=== PATIENT | male | born 1965 | race Caucasian/White ===

== ENCOUNTER 2018-07-15 07:11 | Inpatient (IN) | payer BC ==
--- NOTE | 2018-07-02 16:14 | HP ---
HISTORY AND PHYSICAL: DATE OF ADMISSION/SURGERY: 07/15/18 DATE OF OFFICE VISIT: 07/02/18 SURGEON: Gela Britt MD* (dictated by DAKSHA Martinez). PROCEDURE: Left total hip arthroplasty. CHIEF COMPLAINT: Left hip pain. HISTORY OF PRESENT ILLNESS: Mr. Valente is a 52-year-old gentleman with continued complaints of left hip pain. He has failed conservative treatment and elected to proceed with a left total hip arthroplasty. The surgery is scheduled for 07/15/18. PAST MEDICAL HISTORY: Congenital heart murmur. PAST SURGICAL HISTORY: Bilateral knee arthroscopies and hernia repair. CURRENT MEDICATIONS: 1. Glucosamine/chondroitin. 2. Naproxen. 3. Multivitamin. 4. Vitamin C. 5. Chelle. ALLERGIES: No known drug allergies. FAMILY HISTORY: Coronary artery disease, cancer, and COPD. SOCIAL HISTORY: He is a 52-year-old gentleman who lives with his spouse. He does not smoke or use drugs. Uses occasional alcohol. REVIEW OF SYSTEMS: A complete 14-point review of systems was reviewed with the patient. It was all negative or noncontributory. PHYSICAL EXAMINATION GENERAL: He is well developed, well nourished, in no acute distress. VITAL SIGNS: He stands 5 feet 6 inches tall, weighs 195 pounds. His blood pressure 120/82. His heart rate is 80. HEENT: Normocephalic, atraumatic. NECK: Supple. No palpable lymph nodes. PULMONARY: The lungs are clear to auscultation bilaterally. CARDIAC: Regular rate and rhythm. Strong S1, S2. ABDOMEN: Soft, nontender, nondistended. NEUROLOGIC: He is alert and oriented x3. MUSCULOSKELETAL: Left lower extremity: The skin is intact. There are no open wounds or abrasions. He walks with an antalgic-type gait favoring his left hip. He has decreased internal and external rotation of the left hip, 80 degrees of hip flexion, which reproduces groin pain. He has 2+ dorsalis pedis pulses. Intact sensation. His lower extremity muscle group strengths are intact at 5/5. ASSESSMENT AND PLAN: Mr. Valente is a 52-year-old gentleman with end-stage osteoarthritis of the left hip. He has failed conservative treatment and elected to proceed with left total hip arthroplasty. The surgery is scheduled for 07/15/[address] Britt discussed the risks and benefits of the surgery at today's visit and all of his questions were answered. He will follow up with Dr. Britt 2 weeks after the surgery. DAKSHA MARTINEZ [id number]/[facility] #: [id number] [place]
[~2018-07-15 07:11] MED LIST: Acetaminophen IV 1GM/100ML * 1,000 MG/100 ML VIAL IVPB ONE; Buffered Lidocaine 1% SYRIN* 1 ML/SYRINGE INTRADERM ONE; Dexamethasone IV* 4 MG/ML 1 ML (4 MG) IV SLOW PU ONE; Famotidine IV* 10 MG/ML 2 ML (20 mg) IV ONE; Gabapentin CAP(*) 300 MG PO ONE; Lactated Ringers 1000 ML Bag* 1,000 ML IV SCH; celeCOXIB CAP* 200 MG PO ONE
[2018-07-15] MEDS ORDERED: celeCOXIB CAP* 100 MG ONE (07:41)
[2018-07-15] MEDS ORDERED: ceFAZolin 2 GM in NS PREMIX(*) 2 GM/100 ML BAG IVPB ONE (07:41)
[2018-07-15] MEDS ORDERED: Dexamethasone IV* 4 MG/ML 1 ML (4 MG) ONE (07:41)
[2018-07-15] MEDS ORDERED: Famotidine IV* 10 MG/ML 2 ML (20 mg) ONE (07:41)
[2018-07-15] MEDS ORDERED: Gabapentin CAP(*) 300 MG ONE (07:41)
[2018-07-15] MEDS ORDERED: Acetaminophen IV 1GM/100ML * 100 ML ONE (07:56)
[2018-07-15] MEDS ORDERED: ROPIVACAINE 5 MG/ML 30 ML BTL (0.5%) ONE (08:49)
[2018-07-15] MEDS ORDERED: KETAMINE HCL* 50 MG/ML 10 ML VIAL ONE (08:58)
[2018-07-15] MEDS ORDERED: fentaNYL* 50 MCG/ML 2 ML VIAL (100 MCG VIAL) ONE ×2 (08:58→16:12)
[2018-07-15] MEDS ORDERED: Midazolam* 1 MG/ML 5 ML VIAL (5 MG) ONE ×2 (08:59→10:10)
[2018-07-15] MEDS ORDERED: Propofol* 10 MG/ML 20 ML BTL ONE (08:59)
[2018-07-15] MEDS ORDERED: Ondansetron INJ* 2 MG/ML VIAL ONE (08:59)
[2018-07-15] MEDS ORDERED: Bupivacaine 0.5% SDV PF* 30ML VIAL ONE (08:59)
[2018-07-15] MEDS ORDERED: Ropivacaine (OR use only) 2 MG/ML 10 ML ONE (09:12)
[2018-07-15] MEDS ORDERED: DiMENhydriNATE IV* 50 MG/ML VIAL IV PUSH PRN (11:01)
[2018-07-15] MEDS ORDERED: HYDROmorphone INJ1* 1 MG/ML SYRINGE IV PRN (11:01)
[2018-07-15] MEDS ORDERED: fentaNYL* 50 MCG/ML 2 ML VIAL (100 MCG VIAL) IV PRN (11:01)
[2018-07-15] MEDS ORDERED: Ondansetron INJ* 2 MG/ML VIAL IV PRN ×2 (11:01→12:27)
[2018-07-15] MEDS ORDERED: Scopolamine 1.5 mg* PATCH TRANSDERM PRN (11:01)
[2018-07-15] MEDS ORDERED: Naloxone* 0.4 MG/ML 1 ML VIAL IV PRN (11:01)
[2018-07-15] MEDS ORDERED: Magnesium Hydroxide LIQ* 30 ML UDC PO PRN (12:27)
[2018-07-15] MEDS ORDERED: Polyethylene Glycol 3350* 17 GM PACKET PO PRN (12:27)
[2018-07-15] MEDS ORDERED: Cyclobenzaprine TAB* 10 MG PO PRN (12:27)
[2018-07-15] MEDS ORDERED: Morphine 4 MG/ML VIAL (1 ml) 4 MG/ML VIAL IV PRN (12:27)
[2018-07-15] MEDS ORDERED: Bisacodyl SUPP* 10 MG SUPP PR PRN (12:27)
[2018-07-15] MEDS ORDERED: diPHENhydraMINE IV* 50 MG/ML 1 ml VIAL (BENADRYL) IV PRN (12:27)
[2018-07-15] MEDS ORDERED: diPHENhydraMINE PO* 25 MG PO PRN (12:27)
[2018-07-15] MEDS ORDERED: oxyCODONE TAB* 5 MG TAB PO PRN (12:27)
[2018-07-15] MEDS ORDERED: oxyCODONE/Acetamin 5/325 MG* TAB PO PRN (12:33)
[2018-07-15] MEDS ORDERED: Lactated Ringers 1000 ML Bag* 1,000 ML IV SCH (13:00)
[2018-07-15] MEDS ORDERED: DiMENhydriNATE IV* 50 MG/ML VIAL ONE (13:31)
[2018-07-15] MEDS ORDERED: Scopolamine 1.5 mg* PATCH ONE (13:41)
--- NOTE | 2018-07-15 16:31 | PN ---
Progress Note - Progress Note Date of Service: 07/15/18 Note: Patient seen in PACU POD 0 s/p LTH arthroplasty. He is feeling better, had nausea earlier. Pain is tolerable. Block still has not completely worn off as he still cannot actively dorsiflex left ankle. He now has sensation. Dressing dry left hip.
[2018-07-15] MEDS: Acetaminophen TAB* 325 MG PO SCH ×2 (18:12→21:03)
[2018-07-15] MEDS: ceFAZolin 1 GM ADVAN(*) 1 GM in NS 0.9% 50 ML* 50 ML IVPB SCH (19:18)
[2018-07-15] MEDS: traMADol TAB* 50 MG PO PRN (19:22)
--- NOTE | 2018-07-15 19:40 | OP ---
Operative Report - Blank - Operative Report Date of Operation: 07/15/18 Note: MJ CARDONA 1965 Date Of Surgery: 07/15/18 Gela Britt MD Fur Finisher: Itzel CROOKS did help throughout the procedure with preparation of the hip, wound retraction, manipulation of the hip, and wound closure. Anesthesiologist: Livan lOguin MD Anesthesia Type: spinal Preoperative Diagnosis: Left severe degenerative osteoarthritis of the hip Postoperative Diagnosis: As above Procedure Performed: Left Total Hip Arthroplasty Complications: None Specimen: Femoral head and acetabular reamings sent to pathology. Hardware used: This is uncemented [place] total hip arthroplasty hardware for the femur a size 5 accolade II femoral component, for the acetabulum a size 50 D trident II tritanium cluster hole shell with one 15mm screw, for the insert a size 32D trident x3 zero degree polyethylene insert, and for the femoral head a size 32-4 ceramic biolox V40 femoral head. Brief history/Indication: MJ CARDONA was known in clinic and had a history of severe left hip pain. He failed conservative treatment with anti- inflammatories, pain pills, intra-articular injections and physical therapy. He elected to undergo left total hip arthroplasty due to continued pain and decreased quality of life. Radiographs showed severe end stage osteoarthritis of the hip with bone on bone contact. Informed consent was obtained from the patient. He understood the risks of surgery included but were not limited to: bleeding, infection, damage to nearby structures, intraoperative fracture, nerve palsy, failure of the hardware, early loosening, stiffness or loss of motion, dislocation, leg length discrepancy, anesthesia complications, stroke, heart attack, blood clot and . He wished to proceed. Intra-Operative findings: Intraoperatively the patient was noted to have severe loss of cartilage of the acetabulum and femoral head. Description of the Procedure: MJ CARDONA was identified in the preanesthesia unit. His left hip was marked as the correct operative side. Informed consent was signed and placed in the chart. The patient was taken to the operating room and placed under anesthesia without complication. A kelly catheter was placed. The patient was placed on the peg board with all bony prominences well padded. The left lower extremity was prepped and draped in the usual sterile fashion. Preoperative time-out was made to correctly identify the patient, side and site. Appropriate intraoperative antibiotics were given within one hour of incision. A standard posterior incision was made and carried sharply down to the lateral fascia. A new 10 blade was used to make an incision in the fascia in line with the skin incision. A charnley retractor was placed. The piriformis and conjoined tendons were identified and elevated off the posterolateral femur using electrocautery. These were tagged with number 5 Ethibond. Next electrocautery was used to make a posterolateral capsular flap and this was tagged with number 5 Ethibonds. The hip was carefully dislocated. Lesser trochanter to the center of the femoral head was measured at 55 mm. The oscillating saw was used to make the femoral neck cut. The femoral head was carefully removed. The femur was retracted anteriorly and the acetabular retractors were placed. Long-handled knife was used to sharply remove any remaining labrum from the acetabular rim. The acetabulum was sequentially reamed up to a size 49. A bleeding subchondral bone bed was obtained. A trial liner was placed and had excellent fit and stability. A 50 D trident II tritanium cup was placed and had excellent stability with appropriate anteversion and abduction angle. A single 15mm screw was placed in the superior posterior quadrant for extra stability. A size 32D zero degree trident x3 liner was impacted into the acetabular shell. The liner was checked for stability and was stable. Next attention was turned to preparation of the femoral canal. A canal finder was used to enter the proximal femur. The femoral canal was sequentially broached up to a size 5 femoral broach trial. A trial neck and 32-4 trial femoral head was chosen. Lesser trochanter to center of the femoral head measurement was satisfactory. The hip was reduced and taken through a range of motion. The hip was stable in all positions with good soft tissue tension and appropriate leg lengths. The hip was dislocated and all trials were removed. The final implant chosen was a size 5 accolade II with 127 degree neck. This stem was impacted into the femoral canal without difficulty. The stem was stable with appropriate anteversion. The femoral head chosen was a 32-4 ceramic biolox V40. The head was impacted onto the femoral neck without difficulty. The final lesser trochanter to center of the femoral head measurement was satisfactory. The hip was reduced and taken through a range of motion. The hip was stable in all positions with good soft tissue tension and appropriate leg lengths. The hip was copiously irrigated with sterile saline. The previously tagged capsule and tendons were repaired to the posterolateral femur through two trochanteric drill holes. The lateral fascia layer was closed using number 1 vicryls. The rest of the incision was closed in a layered fashion using 0 and 2-0 vicryls. The skin was closed using 3-0 monocryl suture and Dermabond. Sterile adaptic, 4x4s and paper tape was used to cover the incision. The patients anesthesia was reversed without difficulty. He was taken to the PACU in stable condition. Intended weight-bearing will be as tolerated with posterior hip precautions.
[2018-07-15] MEDS: Docusate CAP* 100 MG PO SCH (21:01)
[2018-07-15] MEDS: oxyCODONE/Acetamin 5/325 MG* TAB PO PRN (21:01)
[2018-07-15] MEDS: Magnesium Hydroxide LIQ* 30 ML UDC PO SCH (21:01)
[2018-07-16] MEDS: ceFAZolin 1 GM ADVAN(*) 1 GM in NS 0.9% 50 ML* 50 ML IVPB SCH ×2 (02:57→10:52)
[2018-07-16] MEDS: traMADol TAB* 50 MG PO PRN (02:58)
[2018-07-16 04:52] LABS: ABS Basophils 0 10^3/ul (0-0.2); ABS Eosinophils 0 10^3/ul (0-0.6); ABS Lymphocytes 0.8 10^3/ul (1.0-4.8); ABS Monocytes 0.7 10^3/ul (0-0.8); ABS Neutrophils 10.5 10^3/ul (1.5-7.7); ABS Nucleated RBC 0 10^3/ul; Eosinophil % 0 %; Hematocrit 37 % (36-46); Hemoglobin 12.8 g/dL (14.0-18.0); Lymphocyte % 6.8 %; Mean Corpuscular HGB Conc 35 g/dL (31-36); Mean Corpuscular Hemoglobin 31 pg (27-31); Mean Corpuscular Volume 89 fL (80-94); Mean Platelet Volume 7.2 fL (7.4-10.4); Nucleated Red Blood Cells % 0; Platelet Count 186 10^3/uL (150-450); Red Blood Count 4.15 10^6 /uL (4.18-5.48); Red Cell Distribution Width 13 % (10.5-15); White Blood Count 12.1 10^3/uL (3.5-10.8)
[2018-07-16 05:21] LABS: Albumin 3.6 g/dL (3.2-5.2); Albumin/Globulin Ratio 1.6 (1-3); BUN/Creatinine Ratio 18.1 (8-20); Calcium 8.8 mg/dL (8.6-10.3); EGFR African American 139.8 (>60); EGFR Non-African American 115.6 (>60); Globulin 2.2 g/dL (2-4); Total Bilirubin 0.6 mg/dL (0.2-1.0); Total Protein 5.8 g/dL (6.4-8.9)
[2018-07-16 05:49] LABS: TSH (Thyroid Stimulating Horm) 0.57 mcIU/mL (0.34-5.60)
[2018-07-16] MEDS: oxyCODONE/Acetamin 5/325 MG* TAB PO PRN ×4 (06:30→21:47)
[2018-07-16] MEDS: Acetaminophen TAB* 325 MG PO SCH ×3 (06:43→21:50)
[2018-07-16] MEDS: Docusate CAP* 100 MG PO SCH ×2 (08:25→21:51)
[2018-07-16] MEDS: Apixaban* 2.5 MG TAB PO SCH ×2 (08:25→21:47)
[2018-07-16] MEDS: Ascorbic Acid TAB* 500 MG PO SCH (08:26)
[2018-07-16] MEDS: Multivitamins/Minerals TAB PO SCH (08:26)
[2018-07-16] MEDS: Magnesium Hydroxide LIQ* 30 ML UDC PO SCH ×2 (08:26→21:51)
--- NOTE | 2018-07-16 08:52 | CONS ---
HOSPITALIST CONSULTATION NOTE: DATE OF CONSULT: 07/15/18 REFERRING PHYSICIAN: Dr. Park SERVICE: Orthopedic Surgery. REASON FOR CONSULT: Concern for sepsis. HISTORY OF PRESENT ILLNESS: Mr. Valente is a 52-year-old man with a history of seasonal allergies and severe left hip osteoarthritis, who was admitted to the hospital for a left total hip arthroplasty. He underwent this procedure on 12/25. He tolerated the procedure without complications and has been recovering as expected. One day after procedure, RN noted the patient to be tachypneic and tachycardic with T-max of 100.0 Fahrenheit, so Medicine was called for concern for sepsis. On interview, the patient reports only left hip pain from surgery and lower back pain from the hospital bed. He denies shortness of breath, dyspnea on exertion, cough, chest pain. He also denies fevers, chills, night sweats, abdominal pain, dysurea. He denies sore throat, runny nose, myalgias. Only significant symptom is new mild headache and he also reports nausea, which he was told was from the analgesia use during surgery and for pain control after surgery. He has been using his incentive spirometer very frequently post-op. PAST MEDICAL HISTORY: 1. Seasonal allergies 2. Severe degenerative left hip osteoarthritis, now status post hip arthroplasty 3. ?murmur. HOME MEDICATIONS: 1. Chelle. 2. Multivitamin. 3. Vitamin C. ALLERGIES: The patient has no known drug allergies. FAMILY HISTORY: His father had myocardial infarction, now status post stents. 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 He lives with his and 2 teenagers. He does not smoke or do any other drugs. He rarely consumes alcohol, no more than twice a month. PHYSICAL EXAMINATION: T-max 100.0, respiratory rate 20, heart rate 100, blood pressure 133/60, O2 saturation 96% on 2 L. General: Anxious-appearing man, but not in acute distress, conversant, alert, and friendly. HEENT: Oropharynx clear. No cervical lymphadenopathy. Lungs: Clear to auscultation bilaterally. Heart: Tachycardic. Regular rate. No murmurs, gallops, rubs. Abdomen: Soft, nontender, nondistended. Lower Extremities: Left hip incision sites clean, dry, intact. Calf diameter equal bilaterally. No palpable veins. Skin: no rash, +diaphoretic DIAGNOSTIC STUDIES/LAB DATA: Labs and chest x-ray are pending. ASSESSMENT AND PLAN: 52-year-old man with history of severe left hip osteoarthritis, now 1 day postop from left hip arthroplasty, is found to have tachycardia, tachypnea, and new oxygen requirements. Given physical exam without localizing source of infection and patient denying all infectious-related symptoms, likely this could be viral syndrome. However, given that the patient is newly requiring oxygen, we will workup for possible pneumonia with chest x-ray and blood cultures. If these are unrevealing, pulmonary embolism will be high on ddx, which could explain tachycardia, low-grade fevers, and hypoxia, although it is unlikely for this to occur so soon after surgery and the patient has been on apixaban and quite ambulatory postop. Unlikely to be allergic reaction, and the patient denies recent or heavy alcohol use. We will follow up lab data including routine labs with lactate and blood cultures. The patient has also been ordered for flu swab, EKG, and chest x-ray. Thank you for this interesting consult. We will follow closely with you. [id number]/[facility] #: [id number] [place]
--- NOTE | 2018-07-16 12:19 | PN ---
Progress Note - Progress Note Date of Service: 07/16/18 SOAP: Subjective: []Patient was seen at bedside. He feels well without CP, SOB, dizziness, nausea. He was lightheaded this morning which has resolved. Left hip pain is well controlled. Objective: []General: Well appearing. NAD LLE: left hip dressing CDI. Thigh is soft, Decreased sensation lateral thigh stopping at the knee with normal sensation reported throughout the extremity otherwise. DP2+, DF/PF intact Calves supple and nontender without erythema, edema or palpable cords Assessment: [] POD [address] Britt 4.12.25 Plan: []WBAT PT/OT Posterior hip precautions eliquis 2.5 mg po BID Decreased sensation lateral thigh: Had a iliac fascia block expect sensation to normalize throughout the day. Pt reports improvement since last night Vital Signs Temp 98.6 F 07/16/18 07:34 Pulse 85 07/16/18 07:34 Resp 18 07/16/18 09:07 BP 112/56 07/16/18 07:34 Pulse Ox 96 07/16/18 07:34 Intake & Output 07/15/18 07/16/18 07/16/18 18:59 06:59 18:59 Intake Total 4022 971 3976 Output Total 1175 1300 Balance 425 -400 1054 Weight 189 lb Intake: IV Fluids 1600 1054 ABX - CEFAZOLIN 109 LR 1500 945 NS 100ML, Cefazolin 2G 100 Oral 900 Output: [place] 1175 1300 Laboratory Last Values WBC 12.1 10^3/uL (3.5-10.8) H 07/16/18 04:26 RBC 4.15 10^6 /uL (4.18-5.48) L 07/16/18 04:26 Hgb 12.8 g/dL (14.0-18.0) L 07/16/18 04:26 Hct 37 % (36-46) 07/16/18 04:26 MCV 89 fL (80-94) 07/16/18 04:26 MCH 31 pg (27-31) 07/16/18 04:26 MCHC 35 g/dL (31-36) 07/16/18 04:26 RDW 13 % (10.5-15) 07/16/18 04:26 Plt Count 186 10^3/uL (150-450) 07/16/18 04:26 MPV 7.2 fL (7.4-10.4) L 07/16/18 04:26 Neut % (Auto) 87.2 % 07/16/18 04:26 Lymph % (Auto) 6.8 % 07/16/18 04:26 [place] % (Auto) 6.0 % 07/16/18 04:26 Eos % (Auto) 0 % 07/16/18 04:26 Baso % (Auto) 0 % 07/16/18 04:26 Absolute Neuts (auto) 10.5 10^3/ul (1.5-7.7) H 07/16/18 04:26 Absolute Lymphs (auto) 0.8 10^3/ul (1.0-4.8) L 07/16/18 04:26 Absolute Monos (auto) 0.7 10^3/ul (0-0.8) 07/16/18 04:26 Absolute Eos (auto) 0 10^3/ul (0-0.6) 07/16/18 04:26 Absolute Basos (auto) 0 10^3/ul (0-0.2) 07/16/18 04:26 Absolute Nucleated RBC 0 10^3/ul 07/16/18 04:26 Nucleated RBC % 0 07/16/18 04:26 Sodium 136 mmol/L (135-145) 07/16/18 04:26 Potassium 4.0 mmol/L (3.5-5.0) 07/16/18 04:26 Chloride 104 mmol/L (101-111) 07/16/18 04:26 Carbon Dioxide 26 mmol/L (22-32) 07/16/18 04:26 Anion Gap 6 mmol/L (2-11) 07/16/18 04:26 BUN 13 mg/dL (6-24) 07/16/18 04:26 Creatinine 0.72 mg/dL (0.67-1.17) 07/16/18 04:26 Est GFR ( Amer) 139.8 (>60) 07/16/18 04:26 Est GFR (Non-Af Amer) 115.6 (>60) 07/16/18 04:26 BUN/Creatinine Ratio 18.1 (8-20) 07/16/18 04:26 Glucose 126 mg/dL (70-100) H 07/16/18 04:26 Lactic Acid 1.6 mmol/L (0.5-2.0) 07/16/18 04:26 Calcium 8.8 mg/dL (8.6-10.3) 07/16/18 04:26 Total Bilirubin 0.60 mg/dL (0.2-1.0) 07/16/18 04:26 AST 32 U/L (13-39) 07/16/18 04:26 ALT 43 U/L (7-52) 07/16/18 04:26 Alkaline Phosphatase 45 U/L (34-104) 07/16/18 04:26 Total Protein 5.8 g/dL (6.4-8.9) L 07/16/18 04:26 Albumin 3.6 g/dL (3.2-5.2) 07/16/18 04:26 Globulin 2.2 g/dL (2-4) 07/16/18 04:26 Albumin/Globulin Ratio 1.6 (1-3) 07/16/18 04:26 TSH 0.57 mcIU/mL (0.34-5.60) 07/16/18 04:26
[2018-07-16 16:01] LABS: Urine Appearance Clear; Urine Bilirubin Negative (Negative); Urine Blood Negative (Negative); Urine Color Yellow; Urine Glucose Negative (Negative); Urine Ketones Negative (Negative); Urine Nitrite Negative (Negative); Urine Protein Negative (Negative); Urine Specific Gravity 1.004 (1.010-1.030); Urine Urobilinogen Negative (Negative)
[2018-07-17] MEDS: oxyCODONE/Acetamin 5/325 MG* TAB PO PRN ×3 (03:09→12:34)
[2018-07-17 03:39] LABS: Influenza A Molecular NEGATIVE (Negative); Influenza B Molecular NEGATIVE (Negative)
[2018-07-17] MEDS: Acetaminophen TAB* 325 MG PO SCH ×2 (05:15→12:37)
[2018-07-17 05:40] LABS: Hematocrit 35 % (36-46); Hemoglobin 12.1 g/dL (14.0-18.0); Mean Platelet Volume 7.1 fL (7.4-10.4); Platelet Count 168 10^3/uL (150-450)
[2018-07-17] MEDS: Apixaban* 2.5 MG TAB PO SCH (08:21)
[2018-07-17] MEDS: Docusate CAP* 100 MG PO SCH (08:21)
[2018-07-17] MEDS: Ascorbic Acid TAB* 500 MG PO SCH (08:21)
[2018-07-17] MEDS: Multivitamins/Minerals TAB PO SCH (08:21)
[2018-07-17] MEDS: Magnesium Hydroxide LIQ* 30 ML UDC PO SCH (08:23)
--- NOTE | 2018-07-17 11:27 | PN ---
Progress Note - Progress Note Date of Service: 07/17/18 SOAP: Subjective: []Patient seen OOB in chair, he feels very well without CP, SOB, dizziness, nausea, dysuria, abdominal pain. Had a sepsis workup last night without any findings of infection. Objective: []General: Well appearing. NAD LLE: left hip dressing changed, incision CDI. Thigh is soft, DP2+, DF/PF intact , sensation intact to light touch throughout the left leg. Calves supple and nontender without erythema, edema or palpable cords Assessment: [] POD [address] Britt 4.12.25 Plan: []WBAT PT/OT Posterior hip precautions eliquis 2.5 mg po BID DC home today. Discussed with medicine, stable for DC Vital Signs Temp 99 F 07/17/18 07:18 Pulse 93 07/17/18 07:18 Resp 18 07/17/18 11:09 BP 116/62 07/17/18 07:18 Pulse Ox 93 07/17/18 08:00 Intake & Output 07/16/18 07/17/18 07/17/18 18:59 06:59 18:59 Intake Total 2444 740 200 Output Total 1475 1650 350 Balance 969 -910 -150 Intake: IV Fluids 1964 ABX - CEFAZOLIN 109 LR 1855 Oral 480 740 200 Output: Urine 1475 1650 350 Other: Estimated Void Medium # Bowel Movements 0 # Voids 1 Laboratory Last Values WBC 12.1 10^3/uL (3.5-10.8) H 07/16/18 04:26 RBC 4.15 10^6 /uL (4.18-5.48) L 07/16/18 04:26 Hgb 12.1 g/dL (14.0-18.0) L 07/17/18 05:18 Hct 35 % (36-46) L 07/17/18 05:18 MCV 89 fL (80-94) 07/16/18 04:26 MCH 31 pg (27-31) 07/16/18 04:26 MCHC 35 g/dL (31-36) 07/16/18 04:26 RDW 13 % (10.5-15) 07/16/18 04:26 Plt Count 168 10^3/uL (150-450) 07/17/18 05:18 MPV 7.1 fL (7.4-10.4) L 07/17/18 05:18 Neut % (Auto) 87.2 % 07/16/18 04:26 Lymph % (Auto) 6.8 % 07/16/18 04:26 Hand % (Auto) 6.0 % 07/16/18 04:26 Eos % (Auto) 0 % 07/16/18 04:26 Baso % (Auto) 0 % 07/16/18 04:26 Absolute Neuts (auto) 10.5 10^3/ul (1.5-7.7) H 07/16/18 04:26 Absolute Lymphs (auto) 0.8 10^3/ul (1.0-4.8) L 07/16/18 04:26 Absolute Monos (auto) 0.7 10^3/ul (0-0.8) 07/16/18 04:26 Absolute Eos (auto) 0 10^3/ul (0-0.6) 07/16/18 04:26 Absolute Basos (auto) 0 10^3/ul (0-0.2) 07/16/18 04:26 Absolute Nucleated RBC 0 10^3/ul 07/16/18 04:26 Nucleated RBC % 0 07/16/18 04:26 Sodium 136 mmol/L (135-145) 07/16/18 04:26 Potassium 4.0 mmol/L (3.5-5.0) 07/16/18 04:26 Chloride 104 mmol/L (101-111) 07/16/18 04:26 Carbon Dioxide 26 mmol/L (22-32) 07/16/18 04:26 Anion Gap 6 mmol/L (2-11) 07/16/18 04:26 BUN 13 mg/dL (6-24) 07/16/18 04:26 Creatinine 0.72 mg/dL (0.67-1.17) 07/16/18 04:26 Est GFR ( Amer) 139.8 (>60) 07/16/18 04:26 Est GFR (Non-Af Amer) 115.6 (>60) 07/16/18 04:26 BUN/Creatinine Ratio 18.1 (8-20) 07/16/18 04:26 Glucose 126 mg/dL (70-100) H 07/16/18 04:26 Lactic Acid 1.6 mmol/L (0.5-2.0) 07/16/18 04:26 Calcium 8.8 mg/dL (8.6-10.3) 07/16/18 04:26 Total Bilirubin 0.60 mg/dL (0.2-1.0) 07/16/18 04:26 AST 32 U/L (13-39) 07/16/18 04:26 ALT 43 U/L (7-52) 07/16/18 04:26 Alkaline Phosphatase 45 U/L (34-104) 07/16/18 04:26 Total Protein 5.8 g/dL (6.4-8.9) L 07/16/18 04:26 Albumin 3.6 g/dL (3.2-5.2) 07/16/18 04:26 Globulin 2.2 g/dL (2-4) 07/16/18 04:26 Albumin/Globulin Ratio 1.6 (1-3) 07/16/18 04:26 TSH 0.57 mcIU/mL (0.34-5.60) 07/16/18 04:26 Urine Color Yellow 07/16/18 14:30 Urine Appearance Clear 07/16/18 14:30 Urine pH 7.0 (5-9) 07/16/18 14:30 Ur Specific [place] 1.004 (1.010-1.030) L 07/16/18 14:30 Urine Protein Negative (Negative) 07/16/18 14:30 Urine Ketones Negative (Negative) 07/16/18 14:30 Urine Blood Negative (Negative) 07/16/18 14:30 Urine Nitrate Negative (Negative) 07/16/18 14:30 Urine Bilirubin Negative (Negative) 07/16/18 14:30 Urine Urobilinogen Negative (Negative) 07/16/18 14:30 Ur Leukocyte Esterase Negative (Negative) 07/16/18 14:30 Urine Glucose Negative (Negative) 07/16/18 14:30 Influenza A (Rapid) Negative (Negative) 07/17/18 03:12 Influenza B (Rapid) Negative (Negative) 07/17/18 03:12
--- NOTE | 2018-07-17 11:36 | DS ---
Orthopedic Discharge Summary - Discharge Summary Date of Admission:07/15/18 Date of Discharge: 07/17/18 Date of Surgery: 07/15/18 Attending Orthopedic Provider: Dr Britt Pre-operative Diagnosis: left hip osteoarthritis Operative Procedure: left total hip replacement Condition of Patient: stable History: MJ CARDONA is a 52 year old M with years of increasingly severe left hip pain. Patient has failed conservative management and has elected to undergo a left total hip replacement Hospital Course: MJ was admitted to [facility] on 07/15/18. Patient underwent a left total hip replacement without complication followed by a brief recovery in PACU and transfer to the Short Stay Surgical Unit in stable condition. Our hospitalist service, physical therapy and occupational therapy also participated in this patients care. Post-op day 1: patient was alert and in no acute distress. Dressing was clean, dry and intact. Operative extremity dorsiflexion and plantarflexion intact, sensation intact to light touch distally , DP2+. Later in the evening he was tachycardic with a low grade fever, hospitalist service saw him for a sepsis workup with yielded no source of infection. Post-op day two: dressing was changed, incision was clean, dry and intact. Patient was deemed to be medically and orthopedically stable for discharge home. Physical therapy goals were met. Discharge Medications Medication Instructions Recorded Confirmed Type Ascorbic Acid TAB* [Vitamin C 500 mg PO QAM 07/02/18 07/15/18 History TAB*] Glucosam/Chondr/Collagn/Hyalur 1 cap PO QAM 07/02/18 07/15/18 History Glucosamine & Chondroitin Cap Multivitamin [Multivitamins] 1 cap PO QAM 07/02/18 07/15/18 History Acetaminophen 07/15/18 History Acetaminophen TAB* [Tylenol TAB*] 975 mg PO Q8H tab 07/17/18 Rx Apixaban* [Eliquis*] 2.5 mg PO BID #60 tab 07/17/18 Rx Docusate CAP* [Colace Cap*] 100 mg PO BID #90 cap 07/17/18 Rx oxyCODONE/Acetamin 5/325 MG* 1 tab PO Q3H PRN tab MDD 10 07/17/18 Rx [Percocet 5/325 TAB*] oxyCODONE/Acetamin 5/325 MG* 2 tab PO Q4H PRN #70 tab MDD 10 07/17/18 Rx [Percocet 5/325 TAB*] Discharge Instructions following Orthopedic Surgery: Activity: * Weight Bearing as tolerated * Continue physical therapy and occupational therapy exercises as shown * Start outpatient PT right away Hip replacements: Continue Hip Precautions- do not cross legs or bend greater than 90 degrees/squat Wound care: * OK to shower on post-op day 3, no bathing, swimming, or submerging wound. * Use gentle soap, pat dry. Cover with gauze, TIMMY wrap or tape. Call Orthopedic office for: * Increased drainage * Redness * Increased pain * Fever Go to ER with shortness of breath or chest pain. Diet: * Regular diet * Increase fluids and fiber to prevent constipation. * Continue to use stool softeners, call office if no bowel motion within 48 hours. Medications See Home Medication List in your packet for medications that you should take after discharge. DVT Prophylaxis Eliquis Dosin.5 mg, 1 tab every 12 hours x 30 days post op. Please note this medication increases bleeding tendency Pain Control: Percocet 5/325 mg 1-2 tabs by mouth every 4-6 hours as needed for pain. Maximum of 10 tabs per day. Hold for sedation. Wean off as soon as pain allows. Please note that Percocet contains Tylenol (acetaminophen). Maximum daily dose of Tylenol is 4000 mg from all sources. Antibiotics are required prior to any dental work. FOLLOW UP: Follow up with [Balwinder ] Within 10-14 days, call for appointment Please call our office with any questions or concerns ([phone])
[2018-07-17 11:42] VITALS: BP 125/64
[2018-07-18] MEDS ORDERED: Scopolamine PATCH Remove* 1 NOTE MISC PATCH OFF SCH (13:30)
== END 2018-07-17 13:55 | disposition home or self-care (01) | DRG 301 ==
LOC: AA 07:11 → SSU 17:44
PROVIDERS: ADMIT Orthopaedic Surgery Adult Reconstructive Orthopaedic Surgery; ATTEND Orthopaedic Surgery Adult Reconstructive Orthopaedic Surgery
PROC: 0SRB04A Replacement of Left Hip Joint with Ceramic on Polyethylene Synthetic Substitute, Uncemented, Open Approach (ICD-10-PCS; principal; 2018-07-15 09:30)
DX: M16.12 Unilateral primary osteoarthritis, left hip (principal); E78.2 Mixed hyperlipidemia; J30.2 Other seasonal allergic rhinitis; R11.0 Nausea; R50.9 Fever, unspecified; R00.0 Tachycardia, unspecified; R42 Dizziness and giddiness; R06.82 Tachypnea, not elsewhere classified; Z82.49 Family history of ischemic heart disease and other diseases of the circulatory system; Z82.5 Family history of asthma and other chronic lower respiratory diseases; Z72.89 Other problems related to lifestyle
CPT/HCPCS: 36415; 71046; 72170; 80053; 81003; 83605; 84443; 85014; 85018; 85025; 85049; 87040; 88304; 88311; 93005; A9270-GY; J0690; J1100; J1240; J2250; J2405; J2704; J2795; J3010